=== PATIENT | female | born 1990 | race Caucasian/White ===

== ENCOUNTER 2018-05-16 16:10 | Inpatient (IN) ==
[2018-05-16] MEDS ORDERED: Succinylcholine Inj 200 MG/10 ML Vial ONE (16:17)
[2018-05-16] MEDS ORDERED: Etomidate Inj 40 MG/20 ML Vial IV.PUSH ONE (16:17)
[2018-05-16] MEDS ORDERED: Propofol 1000 mg/100 ml Inj 1,000 MG/100 ML BOTTLE ONE (16:19)
[2018-05-16] MEDS ORDERED: Sod Chloride 0.9% Inj 1,000 ML IV.SIG ONE ×2 (16:23→16:50)
[2018-05-16] MEDS ORDERED: Propofol 1000 mg/100 ml Inj 1,000 MG/100 ML BOTTLE IV.CONT PRN (16:23)
[2018-05-16] MEDS ORDERED: Succinylcholine Inj 100 MG/5 ML Syringe IV.PUSH ONE (16:23)
[2018-05-16] MEDS ORDERED: Acetaminophen 650 MG Supp RECTAL ONE (16:50)
[2018-05-16] MEDS ORDERED: Midazolam 50 MG/50 ML Inj 50 MG/50 ML BAG IV.CONT ONE (17:08)
--- NOTE | 2018-05-16 17:09 | ED ---
HPI General Chief Complaint: Overdose Stated Complaint: Code Time Seen by Provider: 05/16/18 16:23 Source: RN notes reviewed and old records reviewed (patient kati quintana, [id number]) Mode of arrival: ambulatory Limitations: altered mental status History of Present Illness HPI Narrative: 26-year-old female presents as straight back from triage is unresponsive. Initially she had no pulse and received compressions. When she was in the room she was not breathing but had a pulse. [id number] was performed and she was given 4 mg of Narcan with minimal response so proceeded with intubation. Patient unable to give me any history Related Data Home Medications Medication Instructions Recorded Confirmed Unable to Obtain Home Meds 05/16/18 05/16/18 Allergies Allergy/AdvReac Type Severity Reaction Status Date / Time No Allergy Information Allergy Unverified 05/16/18 16:16 Available Review of Systems ROS Unobtainable ROS Unobtainable: unobtainable due to mental status PMFSH History History Provided By: Family Member (per staff family states possible xanax or herion overdose and truamatic brain injury history) Medical History Medical History Medical history unknown (Acute) Surgical history unknown (Acute) Social History Social History Substance History: Unable to Obtain Second Hand Smoke Exposure: Yes Smoking Status: Current every day smoker Tobacco Type: Cigarettes How Often Do You Have a Drink Containing Alcohol: 4 or more times a week Recent Travel in [facility] within the Last 8 Weeks: No Recent Out of Country Travel within the Last 8 Weeks: No Exam Narrative Exam Narrative: GENERAL: 26 y/o female who is unresponsive SKIN: Focused skin assessment warm/dry. feels warm HEAD: Atraumatic. Normocephalic. EYES: Pupils equal and round. No scleral icterus. No injection or drainage. ENT: No nasal bleeding or discharge. Mucous membranes pink and moist. NECK: Trachea midline. CARDIOVASCULAR: tachycardic rate and regular rhythm RESPIRATORY: no respiratory effort GASTROINTESTINAL: Abdomen soft, nondistended. MUSCULOSKELETAL: No obvious deformities. No clubbing. No cyanosis. NEUROLOGICAL: Unresponsive Procedures Intubation Paralytic: succinylcholine Mg Given: 100 Laryngoscope: Dhruv ET Tube Size: 7.5 Tube Secured Depth (cm): 23 Tube Secured Location: lips Tube Placement Confirmation: visualized tube passing through cords, equal breath sounds bilaterally, no breath sounds over epigastrium and confirmation by capnometry Patient Tolerated Procedure: well, no complications and other Intubation Complications: none Additional Comments: patient unresponsive so sedation held Course Reevaluation(s) Reevaluation #1: patient with tremor-like activity but not focal seizure will dose with 2 mg of Ativan and reevaluate Reevaluation #2: Patient is starting to wake up some given Versed for additional sedation. Given antibiotics for sepsis and blood cultures added on Reevaluation #3: Family at bedside and updated about results and further ICU care, gonzales act placed Consultations Consultation #1: ICU team with dr pfeiffer agrees to admission Initial Documented Vital Signs Pulse Rate 121 H 05/16/18 16:10 Respiratory Rate 20 05/16/18 16:10 Blood Pressure 157/80 H 05/16/18 16:10 Last Documented Vital Signs Temperature 98.3 F 05/19/18 04:00 Pulse Rate 65 05/19/18 05:35 Respiratory Rate 17 05/19/18 04:00 Blood Pressure 99/54 L 05/19/18 04:00 Pulse Oximetry 97 05/19/18 04:00 Critical Care Time Critical Care Time: Yes Total Critical Care Time: 50 Attestation: Aggregate critical care time was 50 minutes. Time to perform other separately billable procedures was not included in the critical care time. My time did not include minutes spent treating any other patients simultaneously or on activities that did not directly contribute to the patient's treatment. The services I provided to this patient were to treat and/or prevent clinically significant deterioration that could result in: respiratory failure, I provided critical care services requiring my management, as noted below: Chart data review, documentation time, medication orders and management, vital sign assessments/reviewing monitor data, ordering and reviewing lab tests, ordering and interpreting/reviewing x-rays and diagnostic studies, care of the patient and discussion of the patient with the admitting physicians. Medical Decision Making MDM Narrative Medical decision making narrative: Patient was given Narcan and was able to breathe but was not responsive. This was repeated without change. Proceeded with rapid sequence intubation and will check workup. Medical Screen Exam Complete: Yes Emergency Medical Condition: Yes Differential Diagnosis Differential Diagnosis: Overdose, coingestion, electrolyte, pneumonia, sepsis, endocarditis, UTI Lab Data Lab results reviewed: Yes I reviewed the patient's lab results. Result diagrams: 05/17/18 03:40 05/17/18 03:40 POC Results POC Urine Results Negative Lab Results 05/16/18 05/16/18 05/16/18 Range/Units 16:20 16:20 16:20 WBC 8.6 (4.0-11.0) th/mm3 RBC 4.64 (4.00-5.30) mil/mm3 Hgb 14.2 (11.6-15.3) gm/dL Hct 41.7 (35.0-46.0) % MCV 89.8 (80.0-100.0) fL MCH 30.5 (27.0-34.0) pg MCHC 33.9 (32.0-36.0) % RDW 14.2 (11.6-17.2) % Plt Count 312 (150-450) th/mm3 MPV 7.8 (7.0-11.0) fL Neut % (Auto) 47.2 (16.0-70.0) % Lymph % (Auto) 39.3 (9.0-44.0) % [place] % (Auto) 7.0 (0.0-8.0) % Eos % (Auto) 5.9 H (0.0-4.0) % Baso % (Auto) 0.6 (0.0-2.0) % Neut # (Auto) 4.1 (1.8-7.7) th/mm3 Lymph # (Auto) 3.4 (1.0-4.8) th/mm3 [place] # (Auto) 0.6 (0.0-0.9) th/mm3 Eos # (Auto) 0.5 H (0.0-0.4) th/mm3 Baso # (Auto) 0.1 (0.0-0.2) th/mm3 WBC Differential . Differential Comment Auto diff final PT 10.4 (9.8-11.6) sec INR 1.0 Ratio Puncture Site Patient Temperature O2 Saturation (90-100) % ABG pH (7.380-7.420) ABG pCO2 (38-42) mmHg ABG pO2 (61-120) mmHg ABG HCO3 (22-26) mmol/L ABG O2 Content (12.0-20.0) Vol % ABG Base Excess (-2-2) mmol/L ABG Methemoglobin (0-2) % Boris Test Hemoglobin (12.0-16.0) G/DL Carboxyhemoglobin (0-4) % O2 Delivery Device Vent Setting Inspired O2 % Critical Value Sodium 139 (136-145) meq/L Potassium 3.7 (3.5-5.1) meq/L Chloride 106 (98-107) meq/L Carbon Dioxide 22.4 (21.0-32.0) meq/L Anion Gap 11 (5-15) meq/L BUN 11 (7-18) mg/dL Creatinine 1.13 H (0.50-1.00) mg/dL Estimated GFR 41 L (>89) mL/min Random Glucose 173 H (74-106) mg/dL Lactic Acid (0.4-2.0) mmol/L Calcium 8.3 L (8.5-10.1) mg/dL Prot Corrected Calcium (8.5-10.1) mg/dL Total Bilirubin 0.4 (0.2-1.0) mg/dL AST 48 H (15-37) U/L ALT 43 (10-53) U/L Alkaline Phosphatase 62 (45-117) U/L Troponin I Less than 0.02 L (0.02-0.05) ng/mL Total Protein 7.2 (6.4-8.2) g/dL Albumin 3.6 (3.4-5.0) g/dL Urine Color (Yellw/Straw) Urine Clarity (Clear) Urine pH (5.0-8.5) Ur Specific [place] (1.002-1.035) Urine Protein (Neg-Trace) mg/dL Urine Glucose (UA) (Negative) mg/dL Urine Ketones (Negative) mg/dL Urine Occult Blood (Negative) Urine Nitrate (Negative) Urine Bilirubin (Negative) Urine Urobilinogen (Less than 2) mg/dL Ur Leukocyte Esterase (Negative) Urine RBC (0-3) /hpf Urine WBC (0-5) /hpf Urine WBC Clumps (None) Ur Squamous Epith Cells (0-5) /hpf Urine Bacteria (None) /hpf Urine Mucus (Occasional) /lpf Micro UA Comment Ur Microscopic Review Urine Culture Comments Nasal Screen MRSA (PCR) (Negative) Vancomycin Trough (5.0-10.0) mcg/mL Salicylates (2.8-20.0) mg/dL Urine Opiates Screen (Neg) Acetaminophen Less than 2.0 L (10.0-30.0) mcg/mL Ur Barbiturates Screen (Neg) Ur Amphetamines Screen (Neg) U Benzodiazepines Scrn (Neg) Urine Cocaine Screen (Neg) U Cannabinoids Screen (Neg) Serum Alcohol Less than 3 (0-5) mg/dL 05/16/18 05/16/18 05/16/18 Range/Units 16:20 16:20 16:20 WBC (4.0-11.0) th/mm3 RBC (4.00-5.30) mil/mm3 Hgb (11.6-15.3) gm/dL Hct (35.0-46.0) % MCV (80.0-100.0) fL MCH (27.0-34.0) pg MCHC (32.0-36.0) % RDW (11.6-17.2) % Plt Count (150-450) th/mm3 MPV (7.0-11.0) fL Neut % (Auto) (16.0-70.0) % Lymph % (Auto) (9.0-44.0) % [place] % (Auto) (0.0-8.0) % Eos % (Auto) (0.0-4.0) % Baso % (Auto) (0.0-2.0) % Neut # (Auto) (1.8-7.7) th/mm3 Lymph # (Auto) (1.0-4.8) th/mm3 [place] # (Auto) (0.0-0.9) th/mm3 Eos # (Auto) (0.0-0.4) th/mm3 Baso # (Auto) (0.0-0.2) th/mm3 WBC Differential Differential Comment PT (9.8-11.6) sec INR Ratio Puncture Site Patient Temperature O2 Saturation (90-100) % ABG pH (7.380-7.420) ABG pCO2 (38-42) mmHg ABG pO2 (61-120) mmHg ABG HCO3 (22-26) mmol/L ABG O2 Content (12.0-20.0) Vol % ABG Base Excess (-2-2) mmol/L ABG Methemoglobin (0-2) % Boris Test Hemoglobin (12.0-16.0) G/DL Carboxyhemoglobin (0-4) % O2 Delivery Device Vent Setting Inspired O2 % Critical Value Sodium (136-145) meq/L Potassium (3.5-5.1) meq/L Chloride (98-107) meq/L Carbon Dioxide (21.0-32.0) meq/L Anion Gap (5-15) meq/L BUN (7-18) mg/dL Creatinine (0.50-1.00) mg/dL Estimated GFR (>89) mL/min Random Glucose (74-106) mg/dL Lactic Acid (0.4-2.0) mmol/L Calcium (8.5-10.1) mg/dL Prot Corrected Calcium (8.5-10.1) mg/dL Total Bilirubin (0.2-1.0) mg/dL AST (15-37) U/L ALT (10-53) U/L Alkaline Phosphatase (45-117) U/L Troponin I (0.02-0.05) ng/mL Total Protein (6.4-8.2) g/dL Albumin (3.4-5.0) g/dL Urine Color Yellow (Yellw/Straw) Urine Clarity Hazy H (Clear) Urine pH 6.0 (5.0-8.5) Ur Specific [place] 1.011 (1.002-1.035) Urine Protein Negative (Neg-Trace) mg/dL Urine Glucose (UA) Negative (Negative) mg/dL Urine Ketones Negative (Negative) mg/dL Urine Occult Blood Negative (Negative) Urine Nitrate Negative (Negative) Urine Bilirubin Negative (Negative) Urine Urobilinogen Less than 2 (Less than 2) mg/dL Ur Leukocyte Esterase Moderate H (Negative) Urine RBC 2 (0-3) /hpf Urine WBC 38 H (0-5) /hpf Urine WBC Clumps Few H (None) Ur Squamous Epith Cells 1 (0-5) /hpf Urine Bacteria Many H (None) /hpf Urine Mucus Few H (Occasional) /lpf Micro UA Comment Cath-culture ind Ur Microscopic Review Not Reportable Urine Culture Comments Cath-cult indicated Nasal Screen MRSA (PCR) (Negative) Vancomycin Trough (5.0-10.0) mcg/mL Salicylates Less than 1.7 L (2.8-20.0) mg/dL Urine Opiates Screen Neg (Neg) Acetaminophen (10.0-30.0) mcg/mL Ur Barbiturates Screen Neg (Neg) Ur Amphetamines Screen Neg (Neg) U Benzodiazepines Scrn Pos H (Neg) Urine Cocaine Screen Pos H (Neg) U Cannabinoids Screen Pos H (Neg) Serum Alcohol (0-5) mg/dL 05/16/18 05/16/18 05/17/18 Range/Units 16:50 17:18 01:00 WBC (4.0-11.0) th/mm3 RBC (4.00-5.30) mil/mm3 Hgb (11.6-15.3) gm/dL Hct (35.0-46.0) % MCV (80.0-100.0) fL MCH (27.0-34.0) pg MCHC (32.0-36.0) % RDW (11.6-17.2) % Plt Count (150-450) th/mm3 MPV (7.0-11.0) fL Neut % (Auto) (16.0-70.0) % Lymph % (Auto) (9.0-44.0) % [place] % (Auto) (0.0-8.0) % Eos % (Auto) (0.0-4.0) % Baso % (Auto) (0.0-2.0) % Neut # (Auto) (1.8-7.7) th/mm3 Lymph # (Auto) (1.0-4.8) th/mm3 [place] # (Auto) (0.0-0.9) th/mm3 Eos # (Auto) (0.0-0.4) th/mm3 Baso # (Auto) (0.0-0.2) th/mm3 WBC Differential Differential Comment PT (9.8-11.6) sec INR Ratio Puncture Site Right radial Patient Temperature 98.6 O2 Saturation 98 (90-100) % ABG pH 7.44 H (7.380-7.420) ABG pCO2 35 L (38-42) mmHg ABG pO2 231 H (61-120) mmHg ABG HCO3 23 (22-26) mmol/L ABG O2 Content 19.2 (12.0-20.0) Vol % ABG Base Excess -0.4 (-2-2) mmol/L ABG Methemoglobin 0.7 (0-2) % Boris Test Present Hemoglobin 13.6 (12.0-16.0) G/DL Carboxyhemoglobin 1.5 (0-4) % O2 Delivery Device Ventilator Vent Setting Va/c/14/500/+5/.60 Inspired O2 60 % Critical Value No Sodium (136-145) meq/L Potassium (3.5-5.1) meq/L Chloride (98-107) meq/L Carbon Dioxide (21.0-32.0) meq/L Anion Gap (5-15) meq/L BUN (7-18) mg/dL Creatinine (0.50-1.00) mg/dL Estimated GFR (>89) mL/min Random Glucose (74-106) mg/dL Lactic Acid 2.6 H (0.4-2.0) mmol/L Calcium (8.5-10.1) mg/dL Prot Corrected Calcium (8.5-10.1) mg/dL Total Bilirubin (0.2-1.0) mg/dL AST (15-37) U/L ALT (10-53) U/L Alkaline Phosphatase (45-117) U/L Troponin I (0.02-0.05) ng/mL Total Protein (6.4-8.2) g/dL Albumin (3.4-5.0) g/dL Urine Color (Yellw/Straw) Urine Clarity (Clear) Urine pH (5.0-8.5) Ur Specific [place] (1.002-1.035) Urine Protein (Neg-Trace) mg/dL Urine Glucose (UA) (Negative) mg/dL Urine Ketones (Negative) mg/dL Urine Occult Blood (Negative) Urine Nitrate (Negative) Urine Bilirubin (Negative) Urine Urobilinogen (Less than 2) mg/dL Ur Leukocyte Esterase (Negative) Urine RBC (0-3) /hpf Urine WBC (0-5) /hpf Urine WBC Clumps (None) Ur Squamous Epith Cells (0-5) /hpf Urine Bacteria (None) /hpf Urine Mucus (Occasional) /lpf Micro UA Comment Ur Microscopic Review Urine Culture Comments Nasal Screen MRSA (PCR) Not detected (Negative) Vancomycin Trough (5.0-10.0) mcg/mL Salicylates (2.8-20.0) mg/dL Urine Opiates Screen (Neg) Acetaminophen (10.0-30.0) mcg/mL Ur Barbiturates Screen (Neg) Ur Amphetamines Screen (Neg) U Benzodiazepines Scrn (Neg) Urine Cocaine Screen (Neg) U Cannabinoids Screen (Neg) Serum Alcohol (0-5) mg/dL 05/17/18 05/17/18 05/17/18 Range/Units 03:40 03:40 03:40 WBC 9.4 (4.0-11.0) th/mm3 RBC 3.59 L (4.00-5.30) mil/mm3 Hgb 11.0 L D (11.6-15.3) gm/dL Hct 32.5 L (35.0-46.0) % MCV 90.7 (80.0-100.0) fL MCH 30.7 (27.0-34.0) pg MCHC 33.9 (32.0-36.0) % RDW 14.2 (11.6-17.2) % Plt Count 204 D (150-450) th/mm3 MPV 7.5 (7.0-11.0) fL Neut % (Auto) 68.3 (16.0-70.0) % Lymph % (Auto) 19.2 (9.0-44.0) % [place] % (Auto) 9.5 H (0.0-8.0) % Eos % (Auto) 2.7 (0.0-4.0) % Baso % (Auto) 0.3 (0.0-2.0) % Neut # (Auto) 6.4 (1.8-7.7) th/mm3 Lymph # (Auto) 1.8 (1.0-4.8) th/mm3 [place] # (Auto) 0.9 (0.0-0.9) th/mm3 Eos # (Auto) 0.3 (0.0-0.4) th/mm3 Baso # (Auto) 0.0 (0.0-0.2) th/mm3 WBC Differential . Differential Comment Auto diff final PT (9.8-11.6) sec INR Ratio Puncture Site Patient Temperature O2 Saturation (90-100) % ABG pH (7.380-7.420) ABG pCO2 (38-42) mmHg ABG pO2 (61-120) mmHg ABG HCO3 (22-26) mmol/L ABG O2 Content (12.0-20.0) Vol % ABG Base Excess (-2-2) mmol/L ABG Methemoglobin (0-2) % Boris Test Hemoglobin (12.0-16.0) G/DL Carboxyhemoglobin (0-4) % O2 Delivery Device Vent Setting Inspired O2 % Critical Value Sodium 143 (136-145) meq/L Potassium 4.0 (3.5-5.1) meq/L Chloride 112 H (98-107) meq/L Carbon Dioxide 24.9 (21.0-32.0) meq/L Anion Gap 6 (5-15) meq/L BUN 12 (7-18) mg/dL Creatinine 0.82 (0.50-1.00) mg/dL Estimated GFR 60 L (>89) mL/min Random Glucose 74 (74-106) mg/dL Lactic Acid 2.2 H (0.4-2.0) mmol/L Calcium 7.4 L* D (8.5-10.1) mg/dL Prot Corrected Calcium 8.1 L (8.5-10.1) mg/dL Total Bilirubin 0.7 (0.2-1.0) mg/dL AST 35 (15-37) U/L ALT 44 (10-53) U/L Alkaline Phosphatase 57 (45-117) U/L Troponin I (0.02-0.05) ng/mL Total Protein 5.8 L D (6.4-8.2) g/dL Albumin 3.0 L D (3.4-5.0) g/dL Urine Color (Yellw/Straw) Urine Clarity (Clear) Urine pH (5.0-8.5) Ur Specific [place] (1.002-1.035) Urine Protein (Neg-Trace) mg/dL Urine Glucose (UA) (Negative) mg/dL Urine Ketones (Negative) mg/dL Urine Occult Blood (Negative) Urine Nitrate (Negative) Urine Bilirubin (Negative) Urine Urobilinogen (Less than 2) mg/dL Ur Leukocyte Esterase (Negative) Urine RBC (0-3) /hpf Urine WBC (0-5) /hpf Urine WBC Clumps (None) Ur Squamous Epith Cells (0-5) /hpf Urine Bacteria (None) /hpf Urine Mucus (Occasional) /lpf Micro UA Comment Ur Microscopic Review Urine Culture Comments Nasal Screen MRSA (PCR) (Negative) Vancomycin Trough (5.0-10.0) mcg/mL Salicylates (2.8-20.0) mg/dL Urine Opiates Screen (Neg) Acetaminophen (10.0-30.0) mcg/mL Ur Barbiturates Screen (Neg) Ur Amphetamines Screen (Neg) U Benzodiazepines Scrn (Neg) Urine Cocaine Screen (Neg) U Cannabinoids Screen (Neg) Serum Alcohol (0-5) mg/dL 05/18/18 Range/Units 15:45 WBC (4.0-11.0) th/mm3 RBC (4.00-5.30) mil/mm3 Hgb (11.6-15.3) gm/dL Hct (35.0-46.0) % MCV (80.0-100.0) fL MCH (27.0-34.0) pg MCHC (32.0-36.0) % RDW (11.6-17.2) % Plt Count (150-450) th/mm3 MPV (7.0-11.0) fL Neut % (Auto) (16.0-70.0) % Lymph % (Auto) (9.0-44.0) % [place] % (Auto) (0.0-8.0) % Eos % (Auto) (0.0-4.0) % Baso % (Auto) (0.0-2.0) % Neut # (Auto) (1.8-7.7) th/mm3 Lymph # (Auto) (1.0-4.8) th/mm3 [place] # (Auto) (0.0-0.9) th/mm3 Eos # (Auto) (0.0-0.4) th/mm3 Baso # (Auto) (0.0-0.2) th/mm3 WBC Differential Differential Comment PT (9.8-11.6) sec INR Ratio Puncture Site Patient Temperature O2 Saturation (90-100) % ABG pH (7.380-7.420) ABG pCO2 (38-42) mmHg ABG pO2 (61-120) mmHg ABG HCO3 (22-26) mmol/L ABG O2 Content (12.0-20.0) Vol % ABG Base Excess (-2-2) mmol/L ABG Methemoglobin (0-2) % Boris Test Hemoglobin (12.0-16.0) G/DL Carboxyhemoglobin (0-4) % O2 Delivery Device Vent Setting Inspired O2 % Critical Value Sodium (136-145) meq/L Potassium (3.5-5.1) meq/L Chloride (98-107) meq/L Carbon Dioxide (21.0-32.0) meq/L Anion Gap (5-15) meq/L BUN (7-18) mg/dL Creatinine (0.50-1.00) mg/dL Estimated GFR (>89) mL/min Random Glucose (74-106) mg/dL Lactic Acid (0.4-2.0) mmol/L Calcium (8.5-10.1) mg/dL Prot Corrected Calcium (8.5-10.1) mg/dL Total Bilirubin (0.2-1.0) mg/dL AST (15-37) U/L ALT (10-53) U/L Alkaline Phosphatase (45-117) U/L Troponin I (0.02-0.05) ng/mL Total Protein (6.4-8.2) g/dL Albumin (3.4-5.0) g/dL Urine Color (Yellw/Straw) Urine Clarity (Clear) Urine pH (5.0-8.5) Ur Specific [place] (1.002-1.035) Urine Protein (Neg-Trace) mg/dL Urine Glucose (UA) (Negative) mg/dL Urine Ketones (Negative) mg/dL Urine Occult Blood (Negative) Urine Nitrate (Negative) Urine Bilirubin (Negative) Urine Urobilinogen (Less than 2) mg/dL Ur Leukocyte Esterase (Negative) Urine RBC (0-3) /hpf Urine WBC (0-5) /hpf Urine WBC Clumps (None) Ur Squamous Epith Cells (0-5) /hpf Urine Bacteria (None) /hpf Urine Mucus (Occasional) /lpf Micro UA Comment Ur Microscopic Review Urine Culture Comments Nasal Screen MRSA (PCR) (Negative) Vancomycin Trough 5.1 (5.0-10.0) mcg/mL Salicylates (2.8-20.0) mg/dL Urine Opiates Screen (Neg) Acetaminophen (10.0-30.0) mcg/mL Ur Barbiturates Screen (Neg) Ur Amphetamines Screen (Neg) U Benzodiazepines Scrn (Neg) Urine Cocaine Screen (Neg) U Cannabinoids Screen (Neg) Serum Alcohol (0-5) mg/dL Imaging Data Attestation: I personally reviewed and interpreted this imaging study as follows : Radiologist's impression: Chest X-Ray 05/16/18 16:23 CONCLUSION: Satisfactory chest appearance Head CT 05/16/18 16:24 CONCLUSION: 1. Evidence of prior craniotomy on the right side. No focal abnormality seen in the right supratentorial brain. 2. Areas of hypodensity extending from the left frontal orbital to anterior sylvian region and into the temporal lobe without evidence of mass effect. This is of uncertain significance. There are no prior neuro imaging studies. May consider further characterization of the left frontal, parietal, and temporal lobe using MRI with and without contrast. . Discharge Plan Discharge Disposition Patient Disposition: 30 Still Patient Discharge Condition Condition: Stable Discharge Details Diagnosis: Acute respiratory failure, Overdose, UTI (urinary tract infection), Sepsis Physicians Team ED Provider: Daphney Reynolds Primary Care Provider: UNKNOWN, Attending Provider: Yuan Fletcher Other Providers: Maninder León Status ED Status: Left Department Discharge Information Discharge Date/Time: 05/16/18 23:35
[2018-05-16 17:11] LABS: Prothrombin Time 10.4 sec (9.8-11.6)
[2018-05-16 17:12] LABS: Bacteria,Urine Many /hpf; Bilirubin,Urine Negative (Negative); Clarity,Urine Hazy (Clear); Color,Urine Yellow (Yellw/Straw); Glucose,Urine (UA) Negative (Negative); Leukocyte Esterase,Urine Moderate (Negative); Mucus,Urine Few /lpf (Occasional); Nitrite,Urine Negative (Negative); Specific Gravity,Urine 1.011 (1.002-1.035); Squamous Epithelial Cell,Urine 1 /hpf (0-5)
[2018-05-16 17:14] LABS: Amphetamine Screen,Urine Neg (Neg); Barbiturate Screen,Urine Neg (Neg); Cannabinoid Screen,Urine Pos (Neg); Cocaine Screen,Urine Pos (Neg)
[2018-05-16 17:21] LABS: ABG Base Excess -0.4 mmol/L (-2-2); ABG PCO2 35 mmHg (38-42); ABG PO2 231 mmHg (61-120)
[2018-05-16 17:21] LABS: Opiate Screen,Urine Neg (Neg)
[2018-05-16 17:22] LABS: Baso # (Auto) 0.1 th/mm3 (0.0-0.2); Baso % (Auto) 0.6 % (0.0-2.0); Eos # (Auto) 0.5 th/mm3 (0.0-0.4); Eos % (Auto) 5.9 % (0.0-4.0); Hematocrit 41.7 % (35.0-46.0); Hemoglobin 14.2 gm/dL (11.6-15.3); Lymph # (Auto) 3.4 th/mm3 (1.0-4.8); Lymph % (Auto) 39.3 % (9.0-44.0); Mean Corpuscular HGB Conc 33.9 % (32.0-36.0); Mean Corpuscular Hemoglobin 30.5 pg (27.0-34.0); Mean Corpuscular Volume 89.8 fL (80.0-100.0); Mean Platelet Volume 7.8 fL (7.0-11.0); Mono # (Auto) 0.6 th/mm3 (0.0-0.9); Neut # (Auto) 4.1 th/mm3 (1.8-7.7); Neut % (Auto) 47.2 % (16.0-70.0); Platelet Count 312 th/mm3 (150-450); Red Blood Count 4.64 mil/mm3 (4.00-5.30); Red Cell Distribution Width 14.2 % (11.6-17.2); White Blood Count 8.6 th/mm3 (4.0-11.0)
[2018-05-16 17:23] LABS: Albumin 3.6 g/dL (3.4-5.0); Anion Gap 11 meq/L (5-15); Aspartate Aminotransferase 48 U/L (15-37); Blood Urea Nitrogen 11 mg/dL (7-18); Calcium 8.3 mg/dL (8.5-10.1); Carbon Dioxide 22.4 meq/L (21.0-32.0); Chloride 106 meq/L (98-107); Glomerular Filtration Rate 41 mL/min (>89); Glucose,Random 173 mg/dL (74-106); Potassium 3.7 meq/L (3.5-5.1); Sodium 139 meq/L (136-145)
[2018-05-16] MEDS ORDERED: Piperacil/Tazo 4.5 GM Premix 4.5 GM/100 ML BAG IV.SIG ONE (17:25)
[2018-05-16 17:28] LABS: Alanine Aminotransferase 43 U/L (10-53); Alkaline Phosphatase 62 U/L (45-117); Total Protein 7.2 g/dL (6.4-8.2)
--- NOTE | 2018-05-16 17:29 | XR ---
EXAM DATE: 05/16/2018 5:23 PM EDT AGE/SEX: 89 years / Female INDICATIONS: Post intubation. CLINICAL DATA: This is the patient's initial encounter. Patient reports that signs and symptoms have been present for 1 day and indicates a pain score of Nonresponsive. MEDICAL/SURGICAL HISTORY: Non-responsive. Non-responsive. COMPARISON: No prior exams available for comparison. FINDINGS: Endotracheal tube is present in good position with tip couple of centimeters above the tina. [place] stric tube descends into the stomach. Lungs are symmetrically aerated and grossly clear. Cardiac cont ours are satisfactory for technique and projection. CONCLUSION: Satisfactory chest appearance Electronically signed by: Jesús Solis MD 05/16/2018 5:27 PM EDT
[2018-05-16] MEDS: Midazolam 50 MG/50 ML Inj 50 MG/50 ML BAG IV.CONT PRN ×2 (17:44→22:07)
[2018-05-16] MEDS ORDERED: Naloxone Inj 2 MG/2 ML Vial IV.PUSH ONE (17:54)
[2018-05-16] MEDS ORDERED: Bisacodyl 10 MG Supp RECTAL PRN (18:18)
[2018-05-16] MEDS ORDERED: Acetaminophen 325 MG Tablet PO PRN (18:18)
[2018-05-16] MEDS ORDERED: Vancomycin Inj 1,000 MG in Sodium Chlor 0.9% Inj 250 ML IV.SIG ONE (18:27)
--- NOTE | 2018-05-16 18:47 | P.HPCC ---
History of Present Illness Service: Critical care Chief Complaint: AMS History of Present Illness: Patient is 26-year-old female with history of IV drug use in the past, who was brought to the emergency department triage unresponsive. She was found pulseless and CPR was started and she was quickly brought inside into the ED. According to Dr. Reynolds's notes, she had a pulse but no spontaneous breathing. No response to 4 mg of IV Narcan, while receiving bag and mask ventilation. Patient was intubated for apnea and airway protection. A CT of the head is pending at this time. Urine drug screen was positive for benzodiazepines, cocaine, cannabis. Boyfriend at the bedside also appears impaired; he gives a history of previous traumatic head injury 2 years ago, he is not sure of the patient's full name. Patient spiked a fever of 100.9 has evidence of UTI. Received a dose of vancomycin in the ED. I will start her on Zosyn 4.5 g IV every 6 hours with a history of IV drug use. Lactic acid also elevated at 2.6. Patient received 2 L normal saline boluses. Maintenance fluid also started normal saline 84 mL/h - Diagnosis (1) Acute encephalopathy (2) Cardiac arrest (3) Acute respiratory failure (4) Overdose (5) UTI (urinary tract infection) (6) Sepsis Inpatient Certification: I certify that the inpatient services were ordered in accordance with Medicare regulations governing the order. This includes certification that hospital inpatient services are reasonable and necessary and in the case of services not specified as inpatient-only under 42 CFR 419.22(n), that they are appropriately provided as inpatient services in accordance to with the 2-midnight benchmark under 43 CFR 412.3(e) Estimated Total Length of Stay (Days): 5 Plans for Post Hospital Care: Not yet determined Review of Systems unobtainable due to endotracheal tube, unobtainable due to mental status PMFSH - History History Provided By: Family Member (per staff family states possible xanax or herion overdose and truamatic brain injury history) - Medical / Surgical Hx Neg / Unobtainable Medical Problems Denied: Unable to Obtain - Medical History Medical History: Medical History (Last Reviewed 05/16/18 @ 17:06 by Daphney Reynolds MD) Medical history unknown Surgical history unknown - Tobacco History Smoking Status: Unknown if ever smoked - Alcohol History How Often Do You Have a Drink Containing Alcohol: Unable to Obtain - Substance Use History Substance History: Unable to Obtain - Travel History Recent Travel in the [place] Within the Last 8 Weeks: No Recent Travel Out of the Country Within the Last 8 Weeks: No - Immunization History Tetanus Immunization: Unable to Assess Hx Influenza Vaccine This Season: Unable to Assess Medications and Allergies Active Medications: Active Medications Acetaminophen (Tylenol) 650 mg PO Q6H PRN PRN Reason: PAIN 1-10 AND/OR FEVER >101F Al Hydroxide/Mg Hydroxide (Milk Of Tori Short) 30 ml PO Q12H PRN PRN Reason: Mild Constipation Albuterol (Albuterol Neb (Agapito)) 2.5 mg NEB Q2HR NEB PRN PRN Reason: SHORTNESS OF BREATH/WHEEZING Albuterol (Duoneb Neb (Prn)) 1 ampul NEB Q6HR NEB AGAPITO Bisacodyl (Dulcolax Supp) 10 mg RECTAL DAILY PRN PRN Reason: SEVERE CONSITIPATION Chlorhexidine Gluconate (Chlorhexidine 2% Cloth) 3 pack TOPICAL DAILY@0400 AGAPITO Stop: 05/22/18 03:59 Chlorhexidine Gluconate (Chlorhexidine 2% Cloth) 3 pack TOPICAL DAILY@0400 PRN PRN Reason: Extra cloth needed Stop: 05/22/18 03:59 Chlorhexidine Gluconate (Peridex 0.12% Oral Kit) 15 ml OROPHARYNG BID@0800, 2000 [facility] Enoxaparin Sodium (Lovenox Inj) 40 mg SQ Q24H AGAPITO Famotidine (Pepcid Pf Inj) 20 mg IV.PUSH Q12HR AGAPITO Propofol (Diprivan 1000 Mg/100 Ml Inj) 1,000 mg in 100 mls @ 1.565 mls/hr IV.CONT TITRATE PRN; Protocol PRN Reason: Per Protocol Last Titration: 05/16/18 18:20 Dose: 15 mcg/kg/min, 4.7 mls/hr Midazolam HCl (Versed Inj) 50 mg in 50 mls @ 2 mls/hr IV.CONT TITRATE PRN; Protocol PRN Reason: Per Protocol Last Titration: 05/16/18 18:00 Dose: 10 mg/hr, 10 mls/hr Sodium Chloride (Ns Inj) 1,000 mls @ 84 mls/hr IV.CONT .[id number] AGAPITO Multivitamins 10 ml/ Thiamine HCl 100 mg/ Folic Acid 1 mg/Sodium Chloride 511.2 mls @ 125 mls/hr IV.SIG Q24H AGAPITO Stop: 05/18/18 23:06 Vancomycin HCl 1,000 mg/ (Sodium Chloride) 250 mls @ 250 mls/hr IV.SIG ONCE ONE Stop: 05/16/18 19:26 Lactulose (Lactulose Liq) 30 ml PO DAILY PRN PRN Reason: SEVERE CONSITIPATION Midazolam HCl (Versed Inj) 2 mg IV.PUSH Q1H PRN PRN Reason: SEDATION Senna/Docusate Sodium (Gladys-Colace) 1 tab PO BID AGAPITO Sennosides (Senokot) 17.2 mg PO Q12H PRN PRN Reason: Moderate Constipation Sodium Chloride (Ns Flush) 2 ml IV.FLUSH PRN PRN PRN Reason: FLUSH AFTER USING IV ACCESS Sodium Chloride (Ns Flush) 2 ml IV.FLUSH BID AGAPITO Sodium Chloride (Ns Flush) 2 ml IV.FLUSH PRN PRN PRN Reason: FLUSH AFTER USING IV ACCESS Allergies Allergy/AdvReac Type Severity Reaction Status Date / Time No Allergy Information Allergy Unverified 05/16/18 16:16 Available Home Medications Medication Instructions Recorded Confirmed Type Unable to Obtain Home Meds 05/16/18 05/16/18 History Results - Labs CBC & Chem 7: 05/16/18 16:20 05/16/18 16:20 Labs: Short CBC 05/16/18 Range/Units 16:20 WBC 8.6 (4.0-11.0) th/mm3 Hgb 14.2 (11.6-15.3) gm/dL Hct 41.7 (35.0-46.0) % Plt Count 312 (150-450) th/mm3 BMP 05/16/18 16:20 Sodium 139 Potassium 3.7 Chloride 106 Carbon Dioxide 22.4 BUN 11 Creatinine 1.13 H Calcium 8.3 L Cardiac Enzymes 05/16/18 Range/Units 16:20 Troponin I Less than 0.02 L (0.02-0.05) ng/mL Liver Function 05/16/18 Range/Units 16:20 Total Bilirubin 0.4 (0.2-1.0) mg/dL AST 48 H (15-37) U/L ALT 43 (10-53) U/L Alkaline Phosphatase 62 (45-117) U/L Albumin 3.6 (3.4-5.0) g/dL Urine 05/16/18 Range/Units 16:20 Urine Color Yellow (Yellw/Straw) Urine Clarity Hazy H (Clear) Urine pH 6.0 (5.0-8.5) Ur Specific [place] 1.011 (1.002-1.035) Urine Protein Negative (Neg-Trace) mg/dL Urine Glucose (UA) Negative (Negative) mg/dL - Imaging Impressions Chest X-Ray 05/16/18 16:23 CONCLUSION: Satisfactory chest appearance Exam Vital signs: Vital Signs 05/16/18 16:10 05/16/18 18:01 05/16/18 18:18 Temperature 100.9 F H Pulse Rate 121 H 107 H 104 H Respiratory Rate 20 14 14 Blood Pressure 157/80 H 100/58 L 97/52 L Pulse Oximetry 100 100 05/16/18 18:28 Temperature Pulse Rate Respiratory Rate 18 Blood Pressure Pulse Oximetry 96 Intake & Output 05/15/18 05/16/18 05/16/18 18:59 06:59 18:59 Weight 52.163 kg Narrative: GENERAL: 26 y/o female who is unresponsive, on the ventilator currently sedated with Versed. She appears poorly nourished SKIN: Warm and dry HEAD: Atraumatic. Normocephalic. EYES: Pupils equal and round, reactive to light. No injection or drainage. ENT: No nasal bleeding or discharge. Orotracheally intubated NECK: Trachea midline. CARDIOVASCULAR: Tachycardic rate and regular rhythm no murmurs RESPIRATORY: Orotracheally intubated. No wheezes or crackles air entry appears equal GASTROINTESTINAL: Abdomen soft, nondistended. MUSCULOSKELETAL: No obvious deformities. No clubbing. No cyanosis. NEUROLOGICAL: Intubated sedated with Versed. Pupils are reactive. Slight withdrawal to painful stimuli 4 while on Versed Septic Shock Reassessment Septic shock perfusion: reassessment completed Caprini VTE Risk Assessment Caprini VTE Risk Assessment: Moderate/High Risk (score >= 2) Caprini Risk Assessment Model: Point Value = 1 Point Value = 2 Point Value = 3 Point Value = 5 Age 41-60 Minor surgery BMI > 25 kg/m2 Swollen legs Varicose veins or History of unexplained or recurrent spontaneous Oral contraceptives or hormone replacement Sepsis (< 1 month) Serious lung disease, including pneumonia (< 1 month) Abnormal pulmonary function Acute myocardial infarction Congestive heart failure (< 1 month) History of inflammatory bowel disease Medical patient at bed rest Age 61-74 Arthroscopic surgery Major open surgery (> 45 min) Laparoscopic surgery (> 45 min) Malignancy Confined to bed (> 72 hours) Immobilizing plaster cast Central venous access Age >= 75 History of VTE Family history of VTE Factor V Leiden Prothrombin [id number] Lupus anticoagulant Anticardiolipin antibodies Elevated serum homocysteine Heparin-induced thrombocytopenia Other congenital or acquired thrombophilia Stroke (< 1 month) Elective arthroplasty Hip, pelvis, or leg fracture Acute spinal cord injury (< 1 month) Prophylaxis Regimen: Total Risk Factor Score Risk Level Prophylaxis Regimen 0-1 Low Early ambulation 2 Moderate Order ONE of the following: *Sequential Compression Device (SCD) *Heparin 5000 units SQ BID 3-4 Higher Order ONE of the following medications: *Heparin 5000 units SQ TID *Enoxaparin/Lovenox 40 mg SQ daily (WT < 150 kg, CrCl > 30 mL/min) *Enoxaparin/Lovenox 30 mg SQ daily (WT < 150 kg, CrCl > 10-29 mL/min) *Enoxaparin/Lovenox 30 mg SQ BID (WT < 150 kg, CrCl > 30 mL/min) AND/OR *Sequential Compression Device (SCD) 5 or more Highest Order ONE of the following medications: *Heparin 5000 units SQ TID (Preferred with Epidurals) *Enoxaparin/Lovenox 40 mg SQ daily (WT < 150 kg, CrCl > 30 mL/min) *Enoxaparin/Lovenox 30 mg SQ daily (WT < 150 kg, CrCl > 10-29 mL/min) *Enoxaparin/Lovenox 30 mg SQ BID (WT < 150 kg, CrCl > 30 mL/min) AND *Sequential Compression Device (SCD) Assessment and Plan - Problem List (1) Acute encephalopathy Code(s): G93.40 - Encephalopathy, unspecified Status: Acute (2) Cardiac arrest Code(s): I46.9 - Cardiac arrest, cause unspecified Status: Acute (3) Acute respiratory failure Code(s): J96.00 - Acute respiratory failure, unspecified whether with hypoxia or hypercapnia Status: Acute (4) Overdose Code(s): T50.901A - Poisoning by unspecified drugs, medicaments and biological substances, accidental (unintentional), initial encounter Status: Acute (5) UTI (urinary tract infection) Code(s): N39.0 - Urinary tract infection, site not specified Status: Acute (6) Sepsis Code(s): A41.9 - Sepsis, unspecified organism Status: Acute - Assessment and Plan Plan: NEURO: Polydrug intoxication Acute encephalopathy History of previous traumatic head injury -Urine drug screen is positive for cocaine, benzodiazepines and cannabis -Propofol for sedation and ventilator synchrony -CT of head pending -Patient's actual name is unknown, unable to retrieve EMR history regarding previous head injury RESP: Acute respiratory failure secondary to drug overdose -Intubated for airway protection, PRVC/AC -Ventilator bundle, -DuoNeb every 6 hours scheduled and as needed -Check sputum culture -SBT when menatl status improved CV: Cardiac arrest Lactic acidosis -Received CPR but cardiac arrest was brief and most likely secondary to respiratory arrest -Normal saline IV fluids 2L bolus and 84 ml per hour, 2d echo, troponin -Trend lactic acid GI: -N.p.o., IV famotidine : -Monitor renal function closely. Yanes catheter. ID: UTI Severe sepsis Rule out infective endocarditis -Antibiotics with IV vancomycin and Zosyn -Blood urine and sputum cultures have been sent -2D echo to evaluate for endocarditis HEME: -Monitor CBC, coags ENDO: -Electrolyte replacement per protocol PROPH: -Bilateral lower extremity SCDs. Lovenox if CT head is negative for acute bleed /IV famotidine LINES: -Utilize peripheral IVs, central line if needed CC time 40 min excluding procedures Code Status: Full Discussed Condition With: Dr. Reynolds (3) Acute respiratory failure Qualifiers: Respiratory failure complication: unspecified whether with hypoxia or hypercapnia Qualified Code(s): J96.00 - Acute respiratory failure, unspecified whether with hypoxia or hypercapnia (4) Overdose Qualifiers: Encounter type: initial encounter Injury intent: undetermined intent Qualified Code(s): T50.904A - Poisoning by unspecified drugs, medicaments and biological substances, undetermined, initial encounter (5) UTI (urinary tract infection) Qualifiers: Urinary tract infection type: site unspecified Hematuria presence: without hematuria Qualified Code(s): N39.0 - Urinary tract infection, site not specified (6) Sepsis Qualifiers: Sepsis type: sepsis due to unspecified organism Qualified Code(s): A41.9 - Sepsis, unspecified organism
[2018-05-16] MEDS ORDERED: Vancomycin Consult Pharmacy OTHER PRN (18:49)
[2018-05-16] MEDS: Chlorhexidine 0.12% Oral Kit 15 ML UDC OROPHARYNG SCH (21:05)
[2018-05-16] MEDS: Senna/Docusate Sodium 8.6/50 MG Tablet PO SCH (21:05)
--- NOTE | 2018-05-16 21:55 | CT ---
EXAM DATE: 05/16/2018 9:45 PM EDT AGE/SEX: 89 years / Female INDICATIONS: Altered mental status. Overdose. CLINICAL DATA: This is the patient's initial encounter. Patient reports that signs and symptoms have been present for 1 day and indicates a pain score of Nonresponsive. MEDICAL/SURGICAL HISTORY: Non-responsive. Non-responsive. RADIATION DOSE: 30.89 CTDI (mGy) ; Patient motion COMPARISON: No prior exams available for comparison. TECHNIQUE: CT of the head without contrast. Using automated exposure control and adjustment of the mA and/or kV according to patient size, radiation dose was kept as low as reasonably achievable to ob tain optimal diagnostic quality images. DICOM format image data is available electronically for revi ew and comparison. FINDINGS: Cerebrum: The ventricles are normal in size. No evidence of midline shift. There is good haney-white matter differentiation in the mid and high convexity. In the left frontal orbital region extending to the anterior sylvian region, there is hypodensity suggesting possible encephalomalacia. No evidence of acute blood products or mass effect. There is also prominence of the anterior sylvian sulci on the left side. Posterior Fossa: The cerebellum and brainstem are intact. The 4th ventricle is midline. The cerebe llopontine angle is unremarkable. Extracranial: The visualized portion of the orbits is intact. 11 mm right maxillary mucous retention cyst or polyp. Skull: Prior right craniotomy with normal approximation of the calvarium. CONCLUSION: 1. Evidence of prior craniotomy on the right side. No focal abnormality seen in the right supratento rial brain. 2. Areas of hypodensity extending from the left frontal orbital to anterior sylvian region and into the temporal lobe without evidence of mass effect. This is of uncertain significance. There are no pr ior neuro imaging studies. May consider further characterization of the left frontal, parietal, and t emporal lobe using MRI with and without contrast. . Electronically signed by: Sushil Thomas MD 05/16/2018 9:54 PM EDT
[2018-05-16] MEDS: Sod Chloride 0.9% Inj 1,000 ML IV.CONT SCH (22:05)
[2018-05-16] MEDS: Enoxaparin Inj 40 MG/0.4 ML Syringe SQ SCH (22:05)
[2018-05-16] MEDS: Famotidine PF Inj 20 MG/2 ML Vial IV.PUSH SCH (22:06)
[2018-05-16] MEDS: Multivitamin Inj 10 ML, Thiamine Inj 100 MG, Folic Acid Inj 1 MG in Sodium Chlor 0.9% I... IV.SIG SCH (22:23)
[2018-05-17] MEDS: Piperacil/Tazo 4.5 GM Premix 4.5 GM/100 ML BAG IV.SIG SCH ×5 (00:42→23:03)
[2018-05-17] MEDS: Oral Hygiene Kit OROPHARYNG SCH ×4 (00:43→15:07)
[2018-05-17] MEDS: Midazolam 50 MG/50 ML Inj 50 MG/50 ML BAG IV.CONT PRN ×2 (01:35→08:15)
[2018-05-17 03:52] LABS: Baso % (Auto) 0.3 % (0.0-2.0); Eos # (Auto) 0.3 th/mm3 (0.0-0.4); Eos % (Auto) 2.7 % (0.0-4.0); Hematocrit 32.5 % (35.0-46.0); Lymph # (Auto) 1.8 th/mm3 (1.0-4.8); Lymph % (Auto) 19.2 % (9.0-44.0); Mean Corpuscular HGB Conc 33.9 % (32.0-36.0); Mean Corpuscular Hemoglobin 30.7 pg (27.0-34.0); Mean Corpuscular Volume 90.7 fL (80.0-100.0); Mean Platelet Volume 7.5 fL (7.0-11.0); Mono # (Auto) 0.9 th/mm3 (0.0-0.9); Mono % (Auto) 9.5 % (0.0-8.0); Neut # (Auto) 6.4 th/mm3 (1.8-7.7); Neut % (Auto) 68.3 % (16.0-70.0); Platelet Count 204 th/mm3 (150-450); Red Blood Count 3.59 mil/mm3 (4.00-5.30); Red Cell Distribution Width 14.2 % (11.6-17.2); White Blood Count 9.4 th/mm3 (4.0-11.0)
[2018-05-17] MEDS ORDERED: Chlorhexidine Gluconate 2% 1 Pack (2 Cloths) TOPICAL PRN (04:00)
[2018-05-17 04:16] LABS: Calcium 7.4 mg/dL (8.5-10.1); Carbon Dioxide 24.9 meq/L (21.0-32.0); Total Protein 5.8 g/dL (6.4-8.2)
[2018-05-17] MEDS: Chlorhexidine Gluconate 2% 1 Pack (2 Cloths) TOPICAL SCH (06:59)
[2018-05-17] MEDS: Senna/Docusate Sodium 8.6/50 MG Tablet PO SCH ×2 (08:25→20:10)
[2018-05-17] MEDS: Famotidine PF Inj 20 MG/2 ML Vial IV.PUSH SCH (08:26)
[2018-05-17] MEDS: Chlorhexidine 0.12% Oral Kit 15 ML UDC OROPHARYNG SCH ×2 (08:28→20:09)
--- NOTE | 2018-05-17 11:56 | ECHRPT ---
Indication: SEPSIS CONCLUSIONS The left ventricular systolic function is normal with an estimated ejection fraction in the range of 55-60%. Normal left ventricular size. Wall thickness is normal. No regional wall motion abnormalities are present. There is trace tricuspid valve regurgitation. The estimated pulmonary arterial pressure is 28 mmHg. The pulmonary valve is not well visualized. BP: / HR: Rhythm: Sinus Technical Quality:Good FINDINGS LEFT VENTRICLE The left ventricular systolic function is normal with an estimated ejection fraction in the range of 55-60%. Normal left ventricular size. Wall thickness is normal. No regional wall motion abnormalities are present. RIGHT VENTRICLE Normal right ventricular size and systolic function. LEFT ATRIUM The left atrial size is normal. RIGHT ATRIUM The right atrial size is normal. ATRIAL SEPTUM Normal atrial septal thickness without atrial level shunting by limited color doppler interrogation. AORTA The aortic root and proximal ascending aorta are normal in size on limited imaging. MITRAL VALVE Structurally normal mitral valve. No mitral valve stenosis or regurgitation. AORTIC VALVE Trileaflet aortic valve. No aortic valve stenosis or regurgitation. TRICUSPID VALVE Structurally normal tricuspid valve. There is trace tricuspid valve regurgitation. The estimated pulmonary arterial pressure is 28 mmHg. PULMONARY VALVE The pulmonary valve is not well visualized. VESSELS The inferior vena cava is normal in size. PERICARDIUM No pericardial effusion. Deshaun Martinez MD, FACC (Electronically Signed) Final Date:17 May 2018 11:55
--- NOTE | 2018-05-17 12:43 | ECG ---
Date Performed: 05/16/2018 Time Performed: 17:57:41 PTAGE: 89 years EKG: SINUS TACHYCARDIA ABNORMAL RHYTHM ECG NO PREVIOUS TRACING DOCTOR: Manolo Narvaez Interpretating Date/Time 05/17/2018 12:37:44
[2018-05-17] MEDS: Sod Chloride 0.9% Inj 1,000 ML IV.CONT SCH (15:07)
[2018-05-17] MEDS: Vancomycin Inj 850 MG in Sodium Chlor 0.9% Inj 250 ML IV.SIG SCH (16:45)
--- NOTE | 2018-05-17 19:36 | P.PNCC ---
Subjective Subjective Remarks/Hospital Course: Hospital Course: Patient is 26-year-old female with history of IV drug use in the past, who was brought to the emergency department triage unresponsive. She was found pulseless and CPR was started and she was quickly brought inside into the ED. According to Dr. Reynolds's notes, she had a pulse but no spontaneous breathing. No response to 4 mg of IV Narcan, while receiving bag and mask ventilation. Patient was intubated for apnea and airway protection. A CT of the head is pending at this time. Urine drug screen was positive for benzodiazepines, cocaine, cannabis. Boyfriend at the bedside also appears impaired; he gives a history of previous traumatic head injury 2 years ago, he is not sure of the patient's full name. Patient spiked a fever of 100.9 has evidence of UTI. Received a dose of vancomycin in the ED. I will start her on Zosyn 4.5 g IV every 6 hours with a history of IV drug use. Lactic acid also elevated at 2.6. Patient received 2 L normal saline boluses. Maintenance fluid also started normal saline 84 mL/h Subjective: 05/17: awake and alert and extubated this AM. neuro intact. wants to leave AMA. denies complaints. does state she did not intentionally overdose. Objective Vital Signs / I&O: Vital Signs 05/16/18 19:39 05/16/18 20:41 05/16/18 21:02 Temperature Pulse Rate 83 79 79 Respiratory Rate 14 14 14 Blood Pressure 99/61 L 97/61 L Pulse Oximetry 100 100 05/16/18 22:09 05/16/18 22:23 05/16/18 22:35 Temperature 37.1 C Pulse Rate 95 H 95 H 98 H Respiratory Rate 14 14 16 Blood Pressure 128/59 L 98/61 L 106/69 Pulse Oximetry 100 100 05/16/18 23:00 05/16/18 23:33 05/16/18 23:46 Temperature Pulse Rate 79 Respiratory Rate 16 16 16 Blood Pressure 101/64 Pulse Oximetry 100 100 05/17/18 00:00 05/17/18 02:00 05/17/18 03:58 Temperature 36.7 C Pulse Rate 75 75 78 Respiratory Rate 16 16 Blood Pressure 103/65 Pulse Oximetry 100 05/17/18 03:59 05/17/18 04:00 05/17/18 06:00 Temperature 36.6 C Pulse Rate 72 73 Respiratory Rate 16 16 Blood Pressure 106/58 L Pulse Oximetry 100 100 05/17/18 07:56 05/17/18 08:00 05/17/18 08:15 Temperature 35.9 C L Pulse Rate 71 71 75 Respiratory Rate 16 16 16 Blood Pressure 105/69 106/71 Pulse Oximetry 100 100 100 05/17/18 10:00 05/17/18 12:00 05/17/18 12:15 Temperature 36.6 C Pulse Rate 91 H 84 79 Respiratory Rate 24 19 Blood Pressure 112/77 101/69 Pulse Oximetry 96 97 05/17/18 14:00 05/17/18 16:00 05/17/18 16:15 Temperature 36.6 C Pulse Rate 91 H 94 H 78 Respiratory Rate 18 17 Blood Pressure 117/85 111/77 Pulse Oximetry 100 91 L 05/17/18 16:30 05/17/18 16:45 Temperature Pulse Rate 77 100 H Respiratory Rate 21 15 Blood Pressure 113/79 116/78 Pulse Oximetry 100 100 Intake & Output 05/17/18 05/17/18 05/18/18 06:59 18:59 06:59 Intake Total 3151 / 3151 1703.5 / 1703.5 Output Total 550 / 550 1800 / 1800 Balance 2601 / 2601 -96.5 / -96.5 Weight 54.5 kg Intake: IV 2065 / 2065 1353.5 / 1353.5 Versed Inj 50 mg In 50 ml @ 2 100 / 100 5 / 5 MG/HR 2 mls/hr IV.CONT TITRATE PRN Rx#:[id number] Diprivan 1000 mg/100 ml Inj 1, 90 / 90 000 mg In 100 ml @ 5 MCG/KG/MIN 1.565 mls/hr IV.CONT TITRATE PRN Rx#:[id number] NS Inj 1,000 ML @ 84 mls/hr IV. 800 / 800 CONT .[id number] JIMMY Rx#:[id number] MVI-12 Inj 10 ML Thiamine Inj 515 / 515 100 MG Folvite Inj 1 MG In NS Inj 500 ML @ 125 mls/hr IV.SIG Q24H [facility]IM[facility] Rx#:[id number] Zosyn 4.5 GM Premix 4.5 gm In 200 / 200 200 / 200 100 ml @ 200 mls/hr IV.SIG Q6H [facility] Rx#:[id number] Vancomycin Inj 1,000 MG In NS 250 / 250 Inj 250 ML @ 250 mls/hr IV.SIG ONCE ONE Rx#:[id number] Vancomycin Inj 850 MG In NS Inj 258.5 / 258.5 250 ML @ 250 mls/hr IV.SIG Q12H [facility] Rx#:[id number] Oral 350 / 350 Other 1086 / 1086 Output: Urine Amount (Catheter) 450 / 450 1800 / 1800 Indwelling Urethral Catheter 450 / 450 1800 / 1800 Gastric Drainage 100 / 100 Oral Orogastric Tube 100 / 100 Other: # Incontinent Voids 1 Weight On Admission 54.5 kg Result Diagrams: 05/17/18 03:40 05/17/18 03:40 Objective Remarks: gen: disheveled young female, sitting in bed, awake, alert. heent: nc. at. perrl. mmm. neck: no jvd. trachea midline. chest: equal chest rise. room air. cv: normal rate, regular rhythm. sinus. abd: soft, nontender, nondistended. no guarding. extr: no peripheral edema. multiple linear scars consistent with iv injections. neuro: RASS +1. intermittently repeats questions, but oriented x 3. GCS 15. no focal deficits. Assessment and Plan - Problem List (1) Acute encephalopathy Code(s): G93.40 - Encephalopathy, unspecified Status: Acute (2) Cardiac arrest Code(s): I46.9 - Cardiac arrest, cause unspecified Status: Acute (3) Acute respiratory failure Code(s): J96.00 - Acute respiratory failure, unspecified whether with hypoxia or hypercapnia Status: Acute (4) Overdose Code(s): T50.901A - Poisoning by unspecified drugs, medicaments and biological substances, accidental (unintentional), initial encounter Status: Acute (5) UTI (urinary tract infection) Code(s): N39.0 - Urinary tract infection, site not specified Status: Acute (6) Sepsis Code(s): A41.9 - Sepsis, unspecified organism Status: Acute - Assessment and Plan Plan: Assessment: 27yF s/p drug overdose with resolving acute organ dysfunction. clearly her drug addiction is a threat to life. [facility] need [facility] further evaluation. NEURO: Polydrug intoxication Acute toxic encephalopathy History of previous traumatic head injury -Urine drug screen is positive for cocaine, benzodiazepines and cannabis - avoid long-acting sedatives. RESP: Acute respiratory failure secondary to drug overdose- resolved OOB pulmonary toilet CV: Cardiac arrest Lactic acidosis- resolved -Received CPR but cardiac arrest was brief and most likely secondary to respiratory arrest -Normal saline IV fluids 2L bolus and 84 ml per hour, 2d echo, troponin -Trend lactic acid GI: -advance diet : -Monitor renal function closely. d/c kenneth. ID: UTI Severe sepsis Rule out infective endocarditis -Antibiotics with IV vancomycin and Zosyn -Blood urine and sputum cultures have been sent -2D echo to evaluate for endocarditis HEME: -Monitor CBC, coags ENDO: -Electrolyte replacement per protocol PROPH: -Bilateral lower extremity SCDs. Lovenox if CT head is negative for acute bleed /IV famotidine LINES: -Utilize peripheral IVs, central line if needed dispo: to [facility] once medically cleared. (3) Acute respiratory failure Qualifiers: Respiratory failure complication: unspecified whether with hypoxia or hypercapnia Qualified Code(s): J96.00 - Acute respiratory failure, unspecified whether with hypoxia or hypercapnia (4) Overdose Qualifiers: Encounter type: initial encounter Injury intent: undetermined intent Qualified Code(s): T50.904A - Poisoning by unspecified drugs, medicaments and biological substances, undetermined, initial encounter (5) UTI (urinary tract infection) Qualifiers: Urinary tract infection type: site unspecified Hematuria presence: without hematuria Qualified Code(s): N39.0 - Urinary tract infection, site not specified (6) Sepsis Qualifiers: Sepsis type: sepsis due to unspecified organism Qualified Code(s): A41.9 - Sepsis, unspecified organism
[2018-05-17] MEDS: Enoxaparin Inj 40 MG/0.4 ML Syringe SQ SCH (20:10)
[2018-05-17] MEDS: Multivitamin Inj 10 ML, Thiamine Inj 100 MG, Folic Acid Inj 1 MG in Sodium Chlor 0.9% I... IV.SIG SCH (21:26)
[2018-05-18] MEDS: Oral Hygiene Kit OROPHARYNG SCH ×4 (01:40→16:26)
[2018-05-18] MEDS: Vancomycin Inj 850 MG in Sodium Chlor 0.9% Inj 250 ML IV.SIG SCH ×2 (02:16→16:25)
[2018-05-18] MEDS: Chlorhexidine Gluconate 2% 1 Pack (2 Cloths) TOPICAL SCH (03:36)
[2018-05-18] MEDS: Piperacil/Tazo 4.5 GM Premix 4.5 GM/100 ML BAG IV.SIG SCH ×4 (05:13→23:10)
--- NOTE | 2018-05-18 07:54 | P.PNIM ---
Subjective Interval history: f/u; drug overdose in no acute distress. looks comfortable. has occasional cough. T max 100.4. d/w the RN and otherwise no other acute issues over night. Physical Exam Vital signs: Vital Signs 05/17/18 07:56 05/17/18 08:00 05/17/18 08:15 Temperature 96.7 F L Pulse Rate 71 71 75 Respiratory Rate 16 16 16 Blood Pressure 105/69 106/71 Pulse Oximetry 100 100 100 05/17/18 10:00 05/17/18 12:00 05/17/18 12:15 Temperature 97.9 F Pulse Rate 91 H 84 79 Respiratory Rate 24 19 Blood Pressure 112/77 101/69 Pulse Oximetry 96 97 05/17/18 14:00 05/17/18 16:00 05/17/18 16:15 Temperature 97.9 F Pulse Rate 91 H 94 H 78 Respiratory Rate 18 17 Blood Pressure 117/85 111/77 Pulse Oximetry 100 91 L 05/17/18 16:30 05/17/18 16:45 05/17/18 20:00 Temperature 99 F Pulse Rate 77 100 H 103 H Respiratory Rate 21 15 21 Blood Pressure 113/79 116/78 113/73 Pulse Oximetry 100 100 100 05/18/18 00:00 05/18/18 04:00 Temperature 99 F 100.4 F H Pulse Rate 89 79 Respiratory Rate 23 16 Blood Pressure 111/75 105/70 Pulse Oximetry 100 100 Intake & Output 05/17/18 05/18/18 05/18/18 18:59 06:59 18:59 Intake Total 1703.5 / 1703.5 1435 / 1435 Output Total 1800 / 1800 Balance -96.5 / -96.5 1435 / 1435 Weight 55.5 kg Intake: IV 1353.5 / 1353.5 1075 / 1075 Versed Inj 50 mg In 50 ml @ 2 5 / 5 MG/HR 2 mls/hr IV.CONT TITRATE PRN Rx#:[id number] Diprivan 1000 mg/100 ml Inj 1, 90 / 90 000 mg In 100 ml @ 5 MCG/KG/MIN 1.565 mls/hr IV.CONT TITRATE PRN Rx#:[id number] NS Inj 1,000 ML @ 84 mls/hr IV. 800 / 800 CONT .[id number] JIMMY Rx#:[id number] MVI-12 Inj 10 ML Thiamine Inj 515 / 515 100 MG Folvite Inj 1 MG In NS Inj 500 ML @ 125 mls/hr IV.SIG Q24H JIMMY Rx#:[id number] Zosyn 4.5 GM Premix 4.5 gm In 200 / 200 300 / 300 100 ml @ 200 mls/hr IV.SIG Q6H JIMMY Rx#:[id number] Vancomycin Inj 850 MG In NS Inj 258.5 / 258.5 260 / 260 250 ML @ 250 mls/hr IV.SIG Q12H JIMMY Rx#:[id number] Oral 350 / 350 360 / 360 Output: Urine Amount (Catheter) 1800 / 1800 Indwelling Urethral Catheter 1800 / 1800 Other: # Voids 5 # Incontinent Voids 1 - Constitutional no acute distress - Routine Respiratory Exam Present: CTA bilaterally - Routine Cardiovascular Exam Present: RRR - Routine Abdominal Exam Present: soft - Routine Extremities Exam Comments: no pedal edema. - Routine Neurological Exam Present: alert, oriented X3 - Urinary Catheter Management Indwelling Urethral Catheter Cath placed during this visit: yes Reason for continuing: Terminally ill/Comfort care Insertion date: 05/16/18 Insertion time: 17:45 Results - Labs CBC & Chem 7: 05/17/18 03:40 05/17/18 03:40 Laboratory Results - last 24 hr 05/16/18 16:20 Urine Color Yellow Urine Clarity Hazy H Urine pH 6.0 Ur Specific Bryce 1.011 Urine Protein Negative Urine Glucose (UA) Negative Urine Ketones Negative Urine Occult Blood Negative Urine Nitrate Negative Urine Bilirubin Negative Urine Urobilinogen Less than 2 Ur Leukocyte Esterase Moderate H Urine RBC 2 Urine WBC 38 H Urine WBC Clumps Few H Ur Squamous Epith Cells 1 Urine Bacteria Many H Urine Mucus Few H Micro UA Comment Cath-culture ind Urine Culture Comments Cath-cult indicated Microbiology 05/16/18 16:20 Catheterized Urine Urine Culture - Preliminary gram negative rods 05/16/18 17:15 Blood - Peripheral Aerobic Blood Culture - Preliminary No growth in 1 day 05/16/18 17:15 Blood - Peripheral Anaerobic Blood Culture - Preliminary No growth in 1 day 05/16/18 17:17 Blood - Peripheral Aerobic Blood Culture - Preliminary No growth in 1 day 05/16/18 17:17 Blood - Peripheral Anaerobic Blood Culture - Preliminary No growth in 1 day 05/17/18 00:00 Sputum - Endotracheal Gram Stain - Final Assessment and Plan - Plan Polydrug intoxication Acute toxic encephalopathy- improved. History of previous traumatic head injury -Urine drug screen is positive for cocaine, benzodiazepines and cannabis - avoid long-acting sedatives. -will consult psych ( patient is on [place]). Acute respiratory failure secondary to drug overdose- resolved pulmonary toilet Cardiac arrest Lactic acidosis- resolved -Received CPR but cardiac arrest was brief and most likely secondary to respiratory arrest -Trend lactic acid UTI Severe sepsis -Antibiotics with IV vancomycin and Zosyn -Blood urine and sputum cultures have been sent -2D echo with no evidence of endocarditis DVT prophylaxis with subq Lovenox dispo: to [facility] once medically stable. transfer to floor. Discussed Condition With: the RN and .
[2018-05-18] MEDS: Chlorhexidine 0.12% Oral Kit 15 ML UDC OROPHARYNG SCH ×2 (11:40→21:28)
[2018-05-18] MEDS: Senna/Docusate Sodium 8.6/50 MG Tablet PO SCH ×2 (11:41→21:26)
[2018-05-18] MEDS ORDERED: Pharmacy Ordered Lab Info OTHER ONE (14:45)
[2018-05-18] MEDS: Enoxaparin Inj 40 MG/0.4 ML Syringe SQ SCH (21:26)
[2018-05-18] MEDS: Vancomycin Inj 1,000 MG in Sodium Chlor 0.9% Inj 250 ML IV.SIG SCH (22:07)
[2018-05-19] MEDS: Multivitamin Inj 10 ML, Thiamine Inj 100 MG, Folic Acid Inj 1 MG in Sodium Chlor 0.9% I... IV.SIG SCH (00:02)
[2018-05-19] MEDS: Oral Hygiene Kit OROPHARYNG SCH ×4 (00:07→16:40)
[2018-05-19] MEDS: Chlorhexidine Gluconate 2% 1 Pack (2 Cloths) TOPICAL SCH (04:56)
[2018-05-19] MEDS: Vancomycin Inj 1,000 MG in Sodium Chlor 0.9% Inj 250 ML IV.SIG SCH ×2 (04:57→14:00)
[2018-05-19] MEDS: Piperacil/Tazo 4.5 GM Premix 4.5 GM/100 ML BAG IV.SIG SCH ×2 (06:10→12:21)
[2018-05-19] MEDS: Chlorhexidine 0.12% Oral Kit 15 ML UDC OROPHARYNG SCH (07:32)
[2018-05-19] MEDS: Senna/Docusate Sodium 8.6/50 MG Tablet PO SCH (09:18)
[2018-05-19 09:44] LABS: Baso % (Auto) 0.4 % (0.0-2.0); Eos # (Auto) 0.2 th/mm3 (0.0-0.4); Eos % (Auto) 2.4 % (0.0-4.0); Hematocrit 38.9 % (35.0-46.0); Hemoglobin 13.3 gm/dL (11.6-15.3); Lymph # (Auto) 1.2 th/mm3 (1.0-4.8); Lymph % (Auto) 16.9 % (9.0-44.0); Mean Corpuscular HGB Conc 34.3 % (32.0-36.0); Mean Corpuscular Hemoglobin 30.7 pg (27.0-34.0); Mean Corpuscular Volume 89.5 fL (80.0-100.0); Mean Platelet Volume 7.8 fL (7.0-11.0); Mono # (Auto) 0.6 th/mm3 (0.0-0.9); Mono % (Auto) 8.6 % (0.0-8.0); Neut # (Auto) 4.9 th/mm3 (1.8-7.7); Neut % (Auto) 71.7 % (16.0-70.0); Platelet Count 255 th/mm3 (150-450); Red Blood Count 4.34 mil/mm3 (4.00-5.30); Red Cell Distribution Width 14.1 % (11.6-17.2); White Blood Count 6.8 th/mm3 (4.0-11.0)
[2018-05-19 10:12] LABS: Calcium 8.9 mg/dL (8.5-10.1); Carbon Dioxide 20.9 meq/L (21.0-32.0); Potassium 3.8 meq/L (3.5-5.1)
--- NOTE | 2018-05-19 16:28 | P.DS ---
Date of admission: 05/16/18 18:01 Primary care physician: UNKNOWN Brief History from admission: Patient is 26-year-old female with history of IV drug use in the past, who was brought to the emergency department triage unresponsive. She was found pulseless and CPR was started and she was quickly brought inside into the ED. According to Dr. Reynolds's notes, she had a pulse but no spontaneous breathing. No response to 4 mg of IV Narcan, while receiving bag and mask ventilation. Patient was intubated for apnea and airway protection. A CT of the head is pending at this time. Urine drug screen was positive for benzodiazepines, cocaine, cannabis. Boyfriend at the bedside also appears impaired; he gives a history of previous traumatic head injury 2 years ago, he is not sure of the patient's full name. Patient spiked a fever of 100.9 has evidence of UTI. Received a dose of vancomycin in the ED. I will start her on Zosyn 4.5 g IV every 6 hours with a history of IV drug use. Lactic acid also elevated at 2.6. Patient received 2 L normal saline boluses. Maintenance fluid also started normal saline 84 mL/h DS: Medications - Discharge Medications Prescriptions: cefuroxime axetil 500 mg PO Q12HR #12 tab DS: Summary Hospital Course: Patient was admitted to the ICU on mechanical ventilation. Was extubated. Blood cultures were negative. Urine grew out Streptococcus was pansensitive. Patient's mental status returned to baseline. She was found to be positive for benzodiazepines and THC and cocaine. Head CT was negative except for some hypodensities which radiology recommended an MRI. Patient opted for outpatient MRI. She was also informed multiple times clearly by psychiatry and medicine that she was under the [place] act and that she would have to commit herself involuntarily on her own to a drug rehab facility probably after discharge. Patient verbalized understanding. Patient has been maximal benefit from hospitalization and is clinically stable for discharge. - Time Spent with Patient Total time spent providing and/or coordinating discharge services: Less than 30 minutes - Quality: VTE Deep Vein Thrombosis/Pulmonary Embolism Present on Admission: No Exam Vital signs: Vital Signs 05/18/18 20:00 05/19/18 00:00 05/19/18 01:35 Temperature 98.1 F 98.1 F Pulse Rate 91 H 83 73 Respiratory Rate 18 17 Blood Pressure 109/74 99/54 L Pulse Oximetry 100 98 05/19/18 04:00 05/19/18 05:35 05/19/18 08:00 Temperature 98.3 F 98.2 F Pulse Rate 73 65 90 Respiratory Rate 17 20 Blood Pressure 99/54 L 102/84 Pulse Oximetry 97 100 05/19/18 12:00 Temperature 98.1 F Pulse Rate 73 Respiratory Rate 20 Blood Pressure 114/78 Pulse Oximetry 100 Intake & Output 05/18/18 05/19/18 05/19/18 18:59 06:59 18:59 Intake Total 458.5 / 458.5 1451.2 / 1451.2 Balance 458.5 / 458.5 1451.2 / 1451.2 Weight 55.6 g Intake: IV 458.5 / 458.5 1211.2 / 1211.2 MVI-12 Inj 10 ML Thiamine Inj 511.2 / 511.2 100 MG Folvite Inj 1 MG In NS Inj 500 ML @ 125 mls/hr IV.SIG Q24H JIMMY Rx#:[id number] Zosyn 4.5 GM Premix 4.5 gm In 200 / 200 200 / 200 100 ml @ 200 mls/hr IV.SIG Q6H JIMMY Rx#:[id number] Vancomycin Inj 1,000 MG In NS 500 / 500 Inj 250 ML @ 250 mls/hr IV.SIG Q8H JIMMY Rx#:[id number] Vancomycin Inj 850 MG In NS Inj 258.5 / 258.5 250 ML @ 250 mls/hr IV.SIG Q12H JIMMY Rx#:[id number] Oral 240 / 240 Other: # Voids 3 Date of Last Bowel Movement 05/18/18 Narrative: Bruising noted over medial aspect of right buttocks -exam performed in the presence of female nurse Patient alert and oriented 3, no acute distress, ambulate without difficulty, clear lungs bilaterally Results Procedures completed during hospitalization: intubation and MV Labs on day of discharge: Labs from last 24 hours 05/19/18 05/19/18 05/18/18 09:05 09:05 15:45 WBC 6.8 RBC 4.34 Hgb 13.3 Hct 38.9 MCV 89.5 MCH 30.7 MCHC 34.3 RDW 14.1 Plt Count 255 MPV 7.8 Neut % (Auto) 71.7 H Lymph % (Auto) 16.9 Phillips % (Auto) 8.6 H Eos % (Auto) 2.4 Baso % (Auto) 0.4 Neut # (Auto) 4.9 Lymph # (Auto) 1.2 Phillips # (Auto) 0.6 Eos # (Auto) 0.2 Baso # (Auto) 0.0 WBC Differential . Differential Comment Auto diff final Sodium 143 Potassium 3.8 Chloride 113 H Carbon Dioxide 20.9 L Anion Gap 9 BUN 7 Creatinine 0.93 Estimated GFR 72 L Random Glucose 104 Calcium 8.9 Vancomycin Trough 5.1 Preliminary micro results at discharge 05/17/18 00:00 Sputum Culture - Preliminary Sputum - Endotracheal Staphylococcus aureus Beta Strep not group A 05/16/18 17:15 Aerobic Blood Culture - Preliminary Blood - Peripheral No growth in 3 days Anaerobic Blood Culture - Preliminary No growth in 3 days 05/16/18 17:17 Aerobic Blood Culture - Preliminary Blood - Peripheral No growth in 3 days Anaerobic Blood Culture - Preliminary No growth in 3 days - Impressions ITS Impressions Chest X-Ray 05/16/18 16:23 CONCLUSION: Satisfactory chest appearance Head CT 05/16/18 16:24 CONCLUSION: 1. Evidence of prior craniotomy on the right side. No focal abnormality seen in the right supratentorial brain. 2. Areas of hypodensity extending from the left frontal orbital to anterior sylvian region and into the temporal lobe without evidence of mass effect. This is of uncertain significance. There are no prior neuro imaging studies. May consider further characterization of the left frontal, parietal, and temporal lobe using MRI with and without contrast. . Discharge Plan - Discharge Disposition Patient Disposition: 70 Transfer To Other Facility - Discharge Condition Condition: Stable - Discharge Order Discharge Orders: Discharge Order (Routine); Ordered 05/19/18 Ordered By: Yuan Fletcher - Discharge Details Discharge Comment: Pt advised to f/u with Drug Rehab facility. - Physicians Team Primary Care Provider: UNKNOWN, Attending Provider: Yuan Fletcher Other Providers: Maninder León MD
[2018-05-19] MEDS ORDERED: Pharmacy Ordered Lab Info OTHER SCH (20:45)
--- NOTE | 2018-05-24 15:49 | P.CONPSY ---
Provisional Diagnosis Admission Date: May 16, 2018 18:01 [place].: Polysubstance dependence History of Present Illness Service: CC Primary Care Provider: UNKNOWN Chief Complaint: AMS History of Present Illness: Late entry. The patient was seen May 18 2018 Patient is 26-year-old single, unemployed, with psychiatric history of anxiety and depression, PTSD, no previous hospitalization, extensive history of polysubstance dependence, opiates, and benzodiazepines use disorder, no previous suicidal attempts, history of incarcerations, her past medical history includes history of right temporal skull fracture/1.7 cm epidural hematoma status post right craniectomy by Dr. Aleman 2014, multidrug-resistant UTIs , mild intermittent asthma, gastroesophageal reflux diseasefemale with history of IV drug use in the past, who was brought to the emergency department triage unresponsive. She was found pulseless and CPR was started and she was quickly brought inside into the ED. According to Dr. Reynolds's notes, she had a pulse but no spontaneous breathing. No response to 4 mg of IV Narcan, while receiving bag and mask ventilation. Patient was intubated for apnea and airway protection. A CT of the head is pending at this time. Urine drug screen was positive for benzodiazepines, cocaine, cannabis. Boyfriend at the bedside also appears impaired; he gives a history of previous traumatic head injury 2 years ago, he is not sure of the patient's full name. Patient spiked a fever of 100.9 has evidence of UTI. Received a dose of vancomycin in the ED. I will start her on Zosyn 4.5 g IV every 6 hours with a history of IV drug use. Lactic acid also elevated at 2.6. Patient received 2 L normal saline boluses. Maintenance fluid also started normal saline 84 mL/h. Chart was extensively review, case discussed with primary care team and nursing in charge, no collateral information available, she was evaluated and seen in the ICU. On evaluation she was calm and cooperative, was found talking by phone with her boyfriend, patient states that the reason she is in the hospital is because her addiction problem is very far from being cured, and even though she is in a transitional house, with significant group therapy and counseling support, and also she is in Suboxone 8 mg twice a day, she is still has the need of using more drugs. She did not do with suicidal intention, she did it to get high after a period of sobriety . Patient denies depressive symptoms, she denies anhedonia, denies hopelessness, helplessness, low energy, poor appetite, suicidal or homicidal ideation. Patient actually reports good motivation to continue her drug program , getting better, her job and with her relationship with her boyfriend. She reports frequent anxiety related with craving of drugs, withdrawal sometimes, and multiple stressors such as family conflicts and economical issues. She denies psychosis, she denies visual and auditory hallucinations, past or current symptoms of karime. She reports frequent mood swings and irritability, reports impulsive behavior that has led in the past to multiple violations of laws and in consequence multiple incarcerations. She also reports a very poor tolerance to frustration and rejection, as at this moment he is very frustrated because her boyfriend and mother are not here with her and have just visited her once. [facility] - History History Provided By: Family Member (per staff family states possible xanax or herion overdose and truamatic brain injury history) - Medical / Surgical Hx Neg / Unobtainable Medical Problems Denied: Unable to Obtain - Medical History Medical History: Medical History (Last Reviewed 05/18/18 @ 14:14 by Willow Teixeira) Medical history unknown Surgical history unknown - Tobacco History Second Hand Smoke Exposure: Yes Tobacco Use In Past 30 Days: Yes Smoking Status: Current every day smoker Tobacco Type: Cigarettes - Alcohol History How Often Do You Have a Drink Containing Alcohol: 4 or more times a week - Substance Use History Substance History: Unable to Obtain - Travel History Recent Travel in the [facility] Within the Last 8 Weeks: No Recent Travel Out of the Country Within the Last 8 Weeks: No - Immunization History Tetanus Immunization: Unsure Hx Influenza Vaccine This Season: No Medications and Allergies Allergies Allergy/AdvReac Type Severity Reaction Status Date / Time No Allergy Information Allergy Unverified 05/16/18 16:16 Available Home Medications Medication Instructions Recorded Confirmed Type Unable to Obtain Home Meds 05/16/18 05/16/18 History Mental Status Examination Appearance: Appropriate Consciousness: Alert Orientation: x4 Motor Activity: Normal gait Speech: Unremarkable Language: Adequate Fund of Knowledge: Adequate Attention and Concentration: Adequate Memory: Unremarkable Mood: Appropriate Affect: Appropriate Thought Process & Associations: Intact Thought Content: Appropriate Hallucination Type: None Delusion Type: None Suicidal Ideation: No Suicidal Plan: No Suicidal Intention: No Homicidal Ideation: No Homicidal Plan: No Homicidal Intention: No Insight: Adequate Judgment: Adequate Assessment and Plan - Assessment (1) Polysubstance dependence Code(s): F19.20 - Other psychoactive substance dependence, uncomplicated Status: Acute - Plan Plan: Estimated LOS: [] days At the moment of this evaluation the patient denies depressive symptoms, manic or perceptual disturbances. She does report anxiety, irritability, frequent mood swings and impulsive behavior mostly related with her sustained polysubstance dependence. She does not need any immediate psychiatric intervention at this moment, she does not meet criteria for psychiatric admission. Patient has a good insight of her addiction problem and is in a state of contemplation, actually she is already in action fight with her drug addiction. He denies suicidal and homicidal ideation. She was extensively psycho educated, supported and motivated. For her anxiety in the hospital I would recommend hydroxyzine 50 mg twice a day. Consul appreciated. Kan act will be lifted Justification for Continued Inpatient Stay: No admission indicated.
== END 2018-05-19 19:40 | disposition short-term general hospital (02) ==
LOC: NEPE 16:10 → NEDA 18:01 → EDBD 18:01 → NEDH 22:01 → HIMC 23:15 → N04 05-18 18:10
PROVIDERS: ADMIT Hospitalist; ATTEND Hospitalist